=== PATIENT | female | born 1980 | race African-American/Black ===

== ENCOUNTER 2021-11-22 15:39 | Emergency (ER) | payer OTHER ==
[2021-11-22 16:33] VITALS: BP 152/107; PULSE 89; TEMP 98.2; BMI 27.4
== END 2021-11-22 18:31 | disposition home or self-care (01) ==
LOC: JERFT 15:39 → JER 15:39 → JERFT 18:31
DX: M25.571 Pain in right ankle and joints of right foot (principal)
CPT/HCPCS: 73610-TC-RT-FY; 73630-TC-RT-FY; 99283-25

== ENCOUNTER 2023-02-06 05:50 | Emergency (ER) | payer OTHER ==
[2023-02-06 06:16] VITALS: BP 137/95; PULSE 98; RESP 20; BMI 27.9
== END 2023-02-06 07:20 | disposition home or self-care (01) ==
LOC: JER 05:50
DX: S70.02XA Contusion of left hip, initial encounter (principal); W22.8XXA Striking against or struck by other objects, initial encounter
CPT/HCPCS: 99282-25